=== PATIENT | female | born 1940 | race Caucasian/White ===

== ENCOUNTER 2018-01-30 10:44 | Inpatient (IN) | payer OTHER ==
[~2018-01-30] VITALS: Ht 152.4 cm; Wt 71.7 kg
[2018-01-30 11:51] LABS: MICROSCOPIC INDICATED
[2018-01-30 11:52] LABS: CULTURE INDICATED? YES
[2018-01-30 12:00] LABS: MEAN CORPUSCULAR HEMOGLOBIN 30.6 pg (27.0-34.8); MEAN CORPUSCULAR HGB CONC 34.5 g/dL (32.4-35.8); MEAN CORPUSCULAR VOLUME 88.6 fL (80-100); MEAN PLATELET VOLUME 8.9 fL (7.4-10.4); PLATELET COUNT 277 x10^3/uL (130-400); RED BLOOD COUNT 4.51 x10^6/uL (3.82-5.3); RED CELL DISTRIBUTION WIDTH 17.6 % (9.6-15.2)
[2018-01-30 12:15] LABS: ANION GAP 9 mmol/L (5-15); CALCIUM 8.4 mg/dL (8.5-10.1); CHLORIDE 107 mmol/L (98-107)
[2018-01-30 12:17] LABS: ALANINE AMINOTRANSFERASE 537 U/L (12-78); ALKALINE PHOSPHATASE 193 U/L (45-117); BILIRUBIN,TOTAL 4.6 mg/dL (0.2-1.0); CREATININE 0.75 mg/dL (0.55-1.02); TOTAL PROTEIN 7.9 g/dL (6.4-8.2)
[2018-01-30 12:22] LABS: TROPONIN I < 0.015 ng/mL (0.000-0.045)
[2018-01-30 12:31] LABS: MD YES
[2018-01-30 12:33] LABS: ANISOCYTOSIS 1+; BAND#(MANUAL) 0.24 x10^3/uL; BANDS%(MANUAL) 3 % (0-7); LYMPH#(MANUAL) 2.05 x10^3/uL (1-3.4); LYMPHS% (MANUAL) 26 % (22-44); MONOS#(MANUAL) 0.47 x10^3/uL (0.3-2.7); MONOS% (MANUAL) 6 % (2-9); SEG#(MANUAL) 5.14 x10^3/uL (1.8-6.8); SEGS% (MANUAL) 65 % (42-75)
[2018-01-30 12:34] LABS: <PLATELET ESTIMATE> ADEQUATE; <PLT MORPHOLOGY> NORMAL PLT MORPH
[2018-01-30 12:36] LABS: TARGET CELLS 1+
[2018-01-30] MEDS ORDERED: CEFTRIAXONE PMX 1GM/50ML 50 ML ONE (14:29)
[2018-01-30] MEDS ORDERED: ONDANSETRON ODT 4 MG ONE (14:29)
[2018-01-30] MEDS ORDERED: MORPHINE SULFATE 4 MG/ML, 1ML ONE (14:30)
[2018-01-30] MEDS ORDERED: MORPHINE SULFATE 4 MG/ML, 1ML IVPush ONE (14:30)
[2018-01-30] MEDS ORDERED: CEFTRIAXONE 1,000 MG in SODIUM CHLORIDE 0.9% 50 ML IV ONE (14:30)
[2018-01-30] MEDS ORDERED: ONDANSETRON ODT 4 MG PO ONE (14:30)
[2018-01-30] MEDS ORDERED: ENALAPRILAT 1.25 MG/ML, 2ML IVPush PRN (15:00)
[2018-01-30] MEDS: LACTATED RINGERS 1,000 ML IV SCH ×2 (15:00→21:16)
[2018-01-30] MEDS ORDERED: POLYETHYLENE GLYCOL 17 GM PACKET PO PRN (15:00)
[2018-01-30] MEDS ORDERED: TRAZODONE 50MG TABLET PO PRN (15:00)
[2018-01-30 15:35] LABS: INTERNATIONAL NORMALIZED RATIO 1.09 (0.93-1.1); PROTHROMBIN TIME 11.3 Seconds (9.6-11.5)
[2018-01-30] MEDS: ONDANSETRON ODT 4 MG PO PRN (18:09)
[2018-01-30] MEDS ORDERED: FENTANYL PF 100 MCG/2ML ONE (18:43)
[2018-01-30] MEDS ORDERED: MIDAZOLAM 1 MG/ML, 2ML ONE (18:43)
[2018-01-30] MEDS ORDERED: CEFAZOLIN 1,000 MG ONE (19:23)
[2018-01-30] MEDS ORDERED: PHENYLEPHRINE 10 MG/ML ONE (19:23)
[2018-01-30] MEDS ORDERED: GLYCOPYRROLATE 0.2MG/1ML, 5ML ONE (19:23)
[2018-01-30] MEDS ORDERED: ROCURONIUM 10 MG/ML,10ML ONE (19:23)
[2018-01-30] MEDS ORDERED: PROPOFOL 10 MG/ML, 20ML ONE (19:23)
[2018-01-30] MEDS ORDERED: SUCCINYLCHOLINE 20 MG/ML, 10ML ONE (19:23)
[2018-01-30] MEDS ORDERED: ONDANSETRON 2MG/ML, 2ML ONE (19:23)
[2018-01-30] MEDS ORDERED: BUPIVACAINE/PF-EPI 0.5% 1:200K INFIL ONE (19:44)
[2018-01-30] MEDS ORDERED: MEPERIDINE/PF 25MG/0.5ML IVPush PRN (20:00)
[2018-01-30] MEDS ORDERED: ALBUTEROL SULFATE 2.5 MG/3 ML NPPB PRN (20:00)
[2018-01-30] MEDS ORDERED: PROMETHAZINE 25 MG/ML, 1ML IV PRN (20:00)
[2018-01-30] MEDS ORDERED: HYDROmorphone 1 MG/ML, 1ML IV PRN (20:00)
[2018-01-30] MEDS ORDERED: LABETALOL 5MG/ML, 20ML IV PRN (20:00)
[2018-01-30] MEDS ORDERED: hydrALAzine 20 MG/ML, 1ML IV PRN (20:00)
[2018-01-30] MEDS ORDERED: METOCLOPRAMIDE 5 MG/ML, 2ML IV PRN (20:00)
[2018-01-30] MEDS ORDERED: FENTANYL PF 100 MCG/2ML IV PRN (20:00)
[2018-01-30] MEDS ORDERED: OXYcodone 5 MG/5 ML ORAL.SOL UDC PO PRN (20:00)
[2018-01-30] MEDS ORDERED: KETOROLAC 30 MG/1 ML IV PRN (20:00)
[2018-01-30] MEDS ORDERED: ONDANSETRON 2MG/ML, 2ML IVPush PRN (20:00)
[2018-01-30] MEDS ORDERED: SUGAMMADEX 200 MG/2 ML IVPush ONE (20:20)
[2018-01-30] MEDS ORDERED: OXYcodone 5 MG/5 ML ORAL.SOL UDC ONE (20:41)
[2018-01-30 21:18] VITALS: BP 103/61
[2018-01-30] MEDS ORDERED: SODIUM CHLORIDE 0.9% 1,000 ML IVBOLUS PRN (23:09)
[2018-01-30] MEDS ORDERED: NALOXONE 1 MG/ML, 2ML ONE (23:35)
[2018-01-31 00:02] LABS: TROPONIN I < 0.015 ng/mL (0.000-0.045)
[2018-01-31] MEDS ORDERED: FENTANYL PF 250 MCG/5ML ONE (00:26)
[2018-01-31] MEDS ORDERED: SUCCINYLCHOLINE 20 MG/ML, 10ML ONE (00:35)
[2018-01-31] MEDS ORDERED: EPHEDRINE 50 MG/ML, 1ML ONE (00:35)
[2018-01-31] MEDS ORDERED: ROCURONIUM 10 MG/ML,10ML ONE (00:35)
[2018-01-31] MEDS ORDERED: CEFAZOLIN 1,000 MG ONE (00:35)
[2018-01-31] MEDS ORDERED: INSULIN SINGLE DOSE, ER SQ-INSULIN ONE (00:50)
[2018-01-31] MEDS ORDERED: HYDROmorphone 1 MG/ML, 1ML IV PRN (01:00)
[2018-01-31] MEDS ORDERED: PROMETHAZINE 25 MG/ML, 1ML IV PRN (01:00)
[2018-01-31] MEDS ORDERED: ALBUTEROL SULFATE 2.5 MG/3 ML NPPB PRN (01:00)
[2018-01-31] MEDS ORDERED: FENTANYL PF 100 MCG/2ML IV PRN (01:00)
[2018-01-31] MEDS ORDERED: OXYcodone 5 MG/5 ML ORAL.SOL UDC PO PRN (01:00)
[2018-01-31] MEDS ORDERED: LABETALOL 5MG/ML, 20ML IV PRN (01:00)
[2018-01-31] MEDS ORDERED: hydrALAzine 20 MG/ML, 1ML IV PRN (01:00)
[2018-01-31] MEDS ORDERED: SUGAMMADEX 200 MG/2 ML IVPush ONE (01:30)
[2018-01-31] MEDS ORDERED: PROPOFOL 100 ML IV ONE (02:01)
[2018-01-31] MEDS ORDERED: NOREPINEPHRINE 4 MG in SODIUM CHLORIDE 0.9% 246 ML IV PRN (03:30)
[2018-01-31 04:28] LABS: MEAN CORPUSCULAR HEMOGLOBIN 29.3 pg (27.0-34.8); MEAN CORPUSCULAR HGB CONC 32.9 g/dL (32.4-35.8); MEAN CORPUSCULAR VOLUME 88.9 fL (80-100); MEAN PLATELET VOLUME 8.9 fL (7.4-10.4); PLATELET COUNT 196 x10^3/uL (130-400); RED BLOOD COUNT 3.62 x10^6/uL (3.82-5.3); RED CELL DISTRIBUTION WIDTH 16.9 % (9.6-15.2)
[2018-01-31 04:42] LABS: MD YES
[2018-01-31 04:44] LABS: BAND#(MANUAL) 1.25 x10^3/uL; BANDS%(MANUAL) 6 % (0-7); LYMPH#(MANUAL) 1.04 x10^3/uL (1-3.4); LYMPHS% (MANUAL) 5 % (22-44); MONOS#(MANUAL) 1.04 x10^3/uL (0.3-2.7); MONOS% (MANUAL) 5 % (2-9); SEG#(MANUAL) 17.47 x10^3/uL (1.8-6.8); SEGS% (MANUAL) 84 % (42-75)
[2018-01-31 04:45] LABS: ANISOCYTOSIS 1+
[2018-01-31 04:46] LABS: <PLATELET ESTIMATE> ADEQUATE; <PLT MORPHOLOGY> NORMAL PLT MORPH; ANION GAP 7 mmol/L (5-15); CALCIUM 6.7 mg/dL (8.5-10.1); CHLORIDE 115 mmol/L (98-107); TARGET CELLS 1+
[2018-01-31 04:52] LABS: CREATININE 0.55 mg/dL (0.55-1.02)
[2018-01-31 04:53] LABS: ALANINE AMINOTRANSFERASE 335 U/L (12-78); ALKALINE PHOSPHATASE 127 U/L (45-117); BILIRUBIN,TOTAL 5.1 mg/dL (0.2-1.0); TOTAL PROTEIN 5.4 g/dL (6.4-8.2)
[2018-01-31] MEDS: KETOROLAC 30 MG/1 ML IV PRN (09:00)
[2018-01-31] MEDS ORDERED: CEFTRIAXONE 1,000 MG in SODIUM CHLORIDE 0.9% 50 ML IV SCH ×2 (09:00→14:30)
[2018-01-31] MEDS ORDERED: LACTATED RINGERS 500 ML IVBOLUS ONE (10:00)
[2018-01-31] MEDS ORDERED: HYDROCORTISONE 100 MG INJ. IVPush SCH (11:30)
[2018-01-31 15:18] LABS: MEAN CORPUSCULAR HEMOGLOBIN 30.4 pg (27.0-34.8); MEAN CORPUSCULAR VOLUME 89.5 fL (80-100); MEAN PLATELET VOLUME 8.9 fL (7.4-10.4); PLATELET COUNT 218 x10^3/uL (130-400); RED BLOOD COUNT 3.53 x10^6/uL (3.82-5.3); RED CELL DISTRIBUTION WIDTH 17.4 % (9.6-15.2)
[2018-01-31 15:24] LABS: ALANINE AMINOTRANSFERASE 330 U/L (12-78); ANION GAP 7 mmol/L (5-15); CALCIUM 6.9 mg/dL (8.5-10.1); CHLORIDE 113 mmol/L (98-107); CREATININE 0.64 mg/dL (0.55-1.02)
[2018-01-31 15:26] LABS: ALKALINE PHOSPHATASE 119 U/L (45-117); BILIRUBIN,TOTAL 4.9 mg/dL (0.2-1.0); TOTAL PROTEIN 5.5 g/dL (6.4-8.2)
[2018-01-31 15:51] LABS: MD YES
[2018-01-31 15:54] LABS: ANISOCYTOSIS 1+; BAND#(MANUAL) 1.25 x10^3/uL; BANDS%(MANUAL) 8 % (0-7); LYMPH#(MANUAL) 2.03 x10^3/uL (1-3.4); LYMPHS% (MANUAL) 13 % (22-44); MONOS#(MANUAL) 0.62 x10^3/uL (0.3-2.7); MONOS% (MANUAL) 4 % (2-9); SEGS% (MANUAL) 75 % (42-75); TARGET CELLS 1+
[2018-01-31 15:55] LABS: <PLATELET ESTIMATE> ADEQUATE; <PLT MORPHOLOGY> NORMAL PLT MORPH; SPHEROCYTES 1+
[2018-01-31] MEDS: SENNA/DOCUSATE TABLET PO SCH (16:36)
[2018-01-31] MEDS: LACTATED RINGERS 1,000 ML IV SCH (17:50)
[2018-01-31] MEDS: HYDROCORTISONE 100 MG INJ. IVPush SCH (20:12)
[2018-02-01 04:00] VITALS: BP 102/40
[2018-02-01] MEDS: LACTATED RINGERS 1,000 ML IV SCH ×3 (04:34→20:03)
[2018-02-01] MEDS: HYDROCORTISONE 100 MG INJ. IVPush SCH ×3 (04:34→20:02)
[2018-02-01 04:59] LABS: BASOPHILS # (AUTO) 0.02 x10^3/uL (0-0.1); BASOPHILS % (AUTO) 0 % (0-1); EOSINOPHILS % (AUTO) 0 % (1-7); LYMPHOCYTES # (AUTO) 2.16 x10^3/uL (1-3.4); LYMPHOCYTES % (AUTO) 13 % (22-44); MD NO; MEAN CORPUSCULAR HEMOGLOBIN 30.4 pg (27.0-34.8); MEAN CORPUSCULAR VOLUME 89.5 fL (80-100); MEAN PLATELET VOLUME 8.9 fL (7.4-10.4); MONOCYTES # (AUTO) 0.91 x10^3/uL (0.2-0.8); MONOCYTES % (AUTO) 5 % (2-9); NEUTROPHILS # (AUTO) 13.86 x10^3/uL (1.8-6.8); NEUTROPHILS % (AUTO) 82 % (42-75); PLATELET COUNT 222 x10^3/uL (130-400); RED BLOOD COUNT 3.21 x10^6/uL (3.82-5.3); RED CELL DISTRIBUTION WIDTH 17.6 % (9.6-15.2)
[2018-02-01 05:06] LABS: ALANINE AMINOTRANSFERASE 273 U/L (12-78); ANION GAP 7 mmol/L (5-15); CALCIUM 6.9 mg/dL (8.5-10.1); CHLORIDE 112 mmol/L (98-107); CREATININE 0.51 mg/dL (0.55-1.02)
[2018-02-01 05:08] LABS: ALKALINE PHOSPHATASE 111 U/L (45-117); TOTAL PROTEIN 5.5 g/dL (6.4-8.2)
[2018-02-01] MEDS: KETOROLAC 30 MG/1 ML IV PRN (08:45)
[2018-02-01] MEDS: HYDROcodone/APAP 5/325 TABLET PO PRN ×2 (08:45→15:27)
[2018-02-01] MEDS: SENNA/DOCUSATE TABLET PO SCH (08:45)
[2018-02-01] MEDS ORDERED: VASOPRESSIN 100 UNIT in SODIUM CHLORIDE 0.9% 495 ML IV PRN (09:00)
[2018-02-01] MEDS: VASOPRESSIN 50 UNIT in SODIUM CHLORIDE 0.9% 247.5 ML IV PRN ×2 (09:33→14:11)
[2018-02-01] MEDS: morphine SULFATE 10 MG/ML, 1ML IVPush PRN ×3 (11:26→16:20)
[2018-02-01] MEDS: ONDANSETRON ODT 4 MG PO PRN (11:28)
[2018-02-01] MEDS: PIPERACILLIN/TAZO/PMX 3.375GM 50 ML IV SCH ×3 (11:39→23:08)
[2018-02-01] MEDS ORDERED: LACTATED RINGERS 1,000 ML IVBOLUS ONE (16:30)
[2018-02-02 04:00] VITALS: BP 107/61
[2018-02-02] MEDS: HYDROCORTISONE 100 MG INJ. IVPush SCH ×3 (04:47→20:28)
[2018-02-02] MEDS: PIPERACILLIN/TAZO/PMX 3.375GM 50 ML IV SCH ×4 (04:47→23:08)
[2018-02-02 05:12] LABS: MEAN CORPUSCULAR HEMOGLOBIN 31.1 pg (27.0-34.8); MEAN CORPUSCULAR HGB CONC 34.1 g/dL (32.4-35.8); MEAN CORPUSCULAR VOLUME 91.2 fL (80-100); MEAN PLATELET VOLUME 8.7 fL (7.4-10.4); PLATELET COUNT 191 x10^3/uL (130-400); RED BLOOD COUNT 2.85 x10^6/uL (3.82-5.3); RED CELL DISTRIBUTION WIDTH 17.5 % (9.6-15.2)
[2018-02-02 05:18] LABS: ALANINE AMINOTRANSFERASE 209 U/L (12-78); ALBUMIN 1.8 g/dL (3.4-5.0); ANION GAP 6 mmol/L (5-15); CALCIUM 6.9 mg/dL (8.5-10.1); CHLORIDE 110 mmol/L (98-107); CREATININE 0.54 mg/dL (0.55-1.02)
[2018-02-02 05:20] LABS: ALKALINE PHOSPHATASE 86 U/L (45-117); TOTAL PROTEIN 4.9 g/dL (6.4-8.2)
[2018-02-02 06:01] LABS: MD YES
[2018-02-02 06:03] LABS: LYMPHS% (MANUAL) 14 % (22-44); MONOS#(MANUAL) 0.56 x10^3/uL (0.3-2.7); MONOS% (MANUAL) 3 % (2-9); SEG#(MANUAL) 15.44 x10^3/uL (1.8-6.8); SEGS% (MANUAL) 83 % (42-75)
[2018-02-02 06:04] LABS: ANISOCYTOSIS 1+; HYPOCHROMIA 1+; TARGET CELLS 1+
[2018-02-02 06:05] LABS: <PLATELET ESTIMATE> ADEQUATE; <PLT MORPHOLOGY> NORMAL PLT MORPH; SMUDGE CELLS 1+
[2018-02-02 06:10] LABS: POLYCHROMASIA 1+
[2018-02-02] MEDS: LACTATED RINGERS 1,000 ML IV SCH ×2 (07:41→23:09)
[2018-02-02] MEDS: SENNA/DOCUSATE TABLET PO SCH (07:42)
[2018-02-02] MEDS ORDERED: LACTATED RINGERS 1,000 ML IVBOLUS ONE (08:00)
[2018-02-02] MEDS: ONDANSETRON ODT 4 MG PO PRN ×2 (15:35→23:54)
[2018-02-02 15:55] VITALS: BP 98/62
[2018-02-02 19:24] VITALS: BP 102/59
[2018-02-02] MEDS: morphine SULFATE 10 MG/ML, 1ML IVPush PRN (23:54)
[2018-02-03 02:13] VITALS: BP 102/64
[2018-02-03] MEDS: HYDROCORTISONE 100 MG INJ. IVPush SCH (05:01)
[2018-02-03] MEDS: PIPERACILLIN/TAZO/PMX 3.375GM 50 ML IV SCH ×4 (05:01→23:33)
[2018-02-03 07:29] VITALS: BP 109/68
[2018-02-03 07:48] LABS: MEAN CORPUSCULAR HEMOGLOBIN 30.8 pg (27.0-34.8); MEAN CORPUSCULAR VOLUME 90.7 fL (80-100); MEAN PLATELET VOLUME 8.5 fL (7.4-10.4); PLATELET COUNT 235 x10^3/uL (130-400); RED BLOOD COUNT 3.03 x10^6/uL (3.82-5.3)
[2018-02-03 07:55] LABS: ALBUMIN 1.9 g/dL (3.4-5.0); ANION GAP 4 mmol/L (5-15); CALCIUM 7.3 mg/dL (8.5-10.1); CHLORIDE 112 mmol/L (98-107)
[2018-02-03 07:57] LABS: MD YES
[2018-02-03 07:58] LABS: ALANINE AMINOTRANSFERASE 182 U/L (12-78); ALKALINE PHOSPHATASE 84 U/L (45-117); BILIRUBIN,TOTAL 1.8 mg/dL (0.2-1.0); CREATININE 0.53 mg/dL (0.55-1.02); TOTAL PROTEIN 5.2 g/dL (6.4-8.2)
[2018-02-03 08:14] LABS: LYMPHS% (MANUAL) 9 % (22-44); MONOS#(MANUAL) 0.67 x10^3/uL (0.3-2.7); MONOS% (MANUAL) 4 % (2-9); NRBC % (MANUAL) 1 % (0-1); SEG#(MANUAL) 14.53 x10^3/uL (1.8-6.8); SEGS% (MANUAL) 87 % (42-75)
[2018-02-03 08:16] LABS: <PLATELET ESTIMATE> ADEQUATE; <PLT MORPHOLOGY> NORMAL PLT MORPH; ANISOCYTOSIS 1+; HYPOCHROMIA 1+; POLYCHROMASIA 1+; TARGET CELLS 1+
[2018-02-03] MEDS: SENNA/DOCUSATE TABLET PO SCH (09:18)
[2018-02-03] MEDS: HYDROcodone/APAP 5/325 TABLET PO PRN ×2 (11:08→20:19)
[2018-02-03] MEDS: LACTATED RINGERS 1,000 ML IV SCH ×2 (11:08→23:34)
[2018-02-03] MEDS: ONDANSETRON ODT 4 MG PO PRN ×2 (13:06→20:15)
[2018-02-03 13:22] VITALS: BP 131/69
[2018-02-03 19:39] VITALS: BP 131/69
[2018-02-04 00:51] VITALS: BP 104/64
[2018-02-04] MEDS: PIPERACILLIN/TAZO/PMX 3.375GM 50 ML IV SCH ×4 (05:41→22:39)
[2018-02-04] MEDS: HYDROcodone/APAP 5/325 TABLET PO PRN ×3 (06:06→20:48)
[2018-02-04] MEDS: ONDANSETRON ODT 4 MG PO PRN ×4 (06:06→20:48)
[2018-02-04 07:04] VITALS: BP 99/55
[2018-02-04] MEDS: SENNA/DOCUSATE TABLET PO SCH (08:45)
[2018-02-04] MEDS: LACTATED RINGERS 1,000 ML IV SCH (11:59)
[2018-02-04 12:24] VITALS: BP 133/63
[2018-02-04 12:45] LABS: BASOPHILS # (AUTO) 0.03 x10^3/uL (0-0.1); BASOPHILS % (AUTO) 0 % (0-1); EOSINOPHILS # (AUTO) 0.03 x10^3/uL (0-0.4); EOSINOPHILS % (AUTO) 0 % (1-7); LYMPHOCYTES # (AUTO) 4.39 x10^3/uL (1-3.4); LYMPHOCYTES % (AUTO) 33 % (22-44); MD NO; MEAN CORPUSCULAR HGB CONC 34.7 g/dL (32.4-35.8); MEAN CORPUSCULAR VOLUME 92.2 fL (80-100); MEAN PLATELET VOLUME 8.4 fL (7.4-10.4); MONOCYTES # (AUTO) 1.35 x10^3/uL (0.2-0.8); MONOCYTES % (AUTO) 10 % (2-9); NEUTROPHILS # (AUTO) 7.66 x10^3/uL (1.8-6.8); NEUTROPHILS % (AUTO) 57 % (42-75); PLATELET COUNT 247 x10^3/uL (130-400); RED BLOOD COUNT 3.19 x10^6/uL (3.82-5.3); RED CELL DISTRIBUTION WIDTH 16.9 % (9.6-15.2)
[2018-02-04 20:34] VITALS: BP 113/45
[2018-02-05 03:24] VITALS: BP_SYST 104; BP_SYST 124; BP_DIAS 63; BP_DIAS 66
[2018-02-05] MEDS: ONDANSETRON ODT 4 MG PO PRN ×4 (03:29→18:40)
[2018-02-05 03:31] LABS: BASOPHILS # (AUTO) 0.04 x10^3/uL (0-0.1); BASOPHILS % (AUTO) 0 % (0-1); EOSINOPHILS # (AUTO) 0.12 x10^3/uL (0-0.4); EOSINOPHILS % (AUTO) 1 % (1-7); LYMPHOCYTES # (AUTO) 3.96 x10^3/uL (1-3.4); LYMPHOCYTES % (AUTO) 36 % (22-44); MD NO; MEAN CORPUSCULAR HEMOGLOBIN 31.6 pg (27.0-34.8); MEAN CORPUSCULAR HGB CONC 34.3 g/dL (32.4-35.8); MEAN CORPUSCULAR VOLUME 92.1 fL (80-100); MEAN PLATELET VOLUME 8.1 fL (7.4-10.4); MONOCYTES # (AUTO) 1.28 x10^3/uL (0.2-0.8); MONOCYTES % (AUTO) 12 % (2-9); NEUTROPHILS # (AUTO) 5.57 x10^3/uL (1.8-6.8); NEUTROPHILS % (AUTO) 51 % (42-75); PLATELET COUNT 259 x10^3/uL (130-400); RED BLOOD COUNT 3.19 x10^6/uL (3.82-5.3); RED CELL DISTRIBUTION WIDTH 16.5 % (9.6-15.2)
[2018-02-05 03:44] LABS: ALANINE AMINOTRANSFERASE 156 U/L (12-78); ALBUMIN 1.8 g/dL (3.4-5.0)
[2018-02-05 03:46] LABS: ALKALINE PHOSPHATASE 74 U/L (45-117); BILIRUBIN,TOTAL 1.5 mg/dL (0.2-1.0); CREATININE 0.61 mg/dL (0.55-1.02); TOTAL PROTEIN 4.9 g/dL (6.4-8.2)
[2018-02-05 04:01] LABS: ANION GAP 6 mmol/L (5-15); CHLORIDE 111 mmol/L (98-107)
[2018-02-05] MEDS: PIPERACILLIN/TAZO/PMX 3.375GM 50 ML IV SCH (05:30)
[2018-02-05 07:37] VITALS: BP 106/67
[2018-02-05] MEDS: POTASSIUM CHLORIDE 20 MEQ TAB.ER.PRT PO SCH ×2 (08:28→17:08)
[2018-02-05] MEDS: SENNA/DOCUSATE TABLET PO SCH (08:29)
[2018-02-05 14:00] VITALS: BP 102/63
[2018-02-05] MEDS ORDERED: OMNIPAQUE 350 MG/ML, 75ML BOTTLE ONE (15:16)
[2018-02-05 19:51] VITALS: BP 113/64
[2018-02-05] MEDS: AMOXICILLIN/CLAV 875-125MG TABLET PO SCH (21:43)
[2018-02-06 02:37] VITALS: BP 105/66
[2018-02-06] MEDS: ONDANSETRON ODT 4 MG PO PRN ×3 (04:08→19:52)
[2018-02-06 04:23] LABS: BASOPHILS # (AUTO) 0.05 x10^3/uL (0-0.1); BASOPHILS % (AUTO) 1 % (0-1); EOSINOPHILS # (AUTO) 0.07 x10^3/uL (0-0.4); EOSINOPHILS % (AUTO) 1 % (1-7); LYMPHOCYTES # (AUTO) 2.99 x10^3/uL (1-3.4); LYMPHOCYTES % (AUTO) 29 % (22-44); MD NO; MEAN CORPUSCULAR HEMOGLOBIN 31.2 pg (27.0-34.8); MEAN CORPUSCULAR HGB CONC 34.1 g/dL (32.4-35.8); MEAN CORPUSCULAR VOLUME 91.5 fL (80-100); MEAN PLATELET VOLUME 8.3 fL (7.4-10.4); MONOCYTES # (AUTO) 0.58 x10^3/uL (0.2-0.8); MONOCYTES % (AUTO) 6 % (2-9); NEUTROPHILS # (AUTO) 6.74 x10^3/uL (1.8-6.8); NEUTROPHILS % (AUTO) 65 % (42-75); PLATELET COUNT 288 x10^3/uL (130-400); RED BLOOD COUNT 3.31 x10^6/uL (3.82-5.3); RED CELL DISTRIBUTION WIDTH 16.9 % (9.6-15.2)
[2018-02-06 04:31] LABS: CALCIUM 7.4 mg/dL (8.5-10.1); CREATININE 0.53 mg/dL (0.55-1.02)
[2018-02-06 04:41] LABS: ANION GAP 2 mmol/L (5-15); CHLORIDE 108 mmol/L (98-107)
[2018-02-06 06:30] VITALS: BP 121/70
[2018-02-06] MEDS: POTASSIUM CHLORIDE 20 MEQ TAB.ER.PRT PO SCH ×2 (08:54→17:09)
[2018-02-06] MEDS: AMOXICILLIN/CLAV 875-125MG TABLET PO SCH ×2 (08:54→21:06)
[2018-02-06] MEDS: SENNA/DOCUSATE TABLET PO SCH (08:57)
[2018-02-06 12:15] VITALS: BP 112/49
[2018-02-06 19:36] VITALS: BP 121/73
[2018-02-07 02:23] VITALS: BP 135/68
[2018-02-07 05:34] LABS: BASOPHILS # (AUTO) 0.05 x10^3/uL (0-0.1); BASOPHILS % (AUTO) 0 % (0-1); EOSINOPHILS # (AUTO) 0.21 x10^3/uL (0-0.4); EOSINOPHILS % (AUTO) 2 % (1-7); LYMPHOCYTES # (AUTO) 3.22 x10^3/uL (1-3.4); LYMPHOCYTES % (AUTO) 28 % (22-44); MD NO; MEAN CORPUSCULAR HEMOGLOBIN 32.4 pg (27.0-34.8); MEAN CORPUSCULAR HGB CONC 34.7 g/dL (32.4-35.8); MEAN CORPUSCULAR VOLUME 93.4 fL (80-100); MEAN PLATELET VOLUME 8.2 fL (7.4-10.4); MONOCYTES # (AUTO) 1.25 x10^3/uL (0.2-0.8); MONOCYTES % (AUTO) 11 % (2-9); NEUTROPHILS % (AUTO) 58 % (42-75); PLATELET COUNT 249 x10^3/uL (130-400); RED BLOOD COUNT 2.93 x10^6/uL (3.82-5.3); RED CELL DISTRIBUTION WIDTH 17.4 % (9.6-15.2)
[2018-02-07 05:45] LABS: ALANINE AMINOTRANSFERASE 116 U/L (12-78); ALBUMIN 1.7 g/dL (3.4-5.0); ANION GAP 0 mmol/L (5-15); CALCIUM 7.1 mg/dL (8.5-10.1); CHLORIDE 110 mmol/L (98-107)
[2018-02-07 05:47] LABS: ALKALINE PHOSPHATASE 81 U/L (45-117); BILIRUBIN,TOTAL 1.9 mg/dL (0.2-1.0); CREATININE 0.48 mg/dL (0.55-1.02); TOTAL PROTEIN 4.8 g/dL (6.4-8.2)
[2018-02-07 07:49] VITALS: BP 106/61
[2018-02-07] MEDS: AMOXICILLIN/CLAV 875-125MG TABLET PO SCH (08:23)
[2018-02-07] MEDS: POTASSIUM CHLORIDE 20 MEQ TAB.ER.PRT PO SCH ×2 (08:23→17:00)
[2018-02-07] MEDS: ONDANSETRON ODT 4 MG PO PRN ×2 (08:23→16:01)
[2018-02-07] MEDS: SENNA/DOCUSATE TABLET PO SCH (08:24)
[2018-02-07] MEDS ORDERED: AMOX1TAB12 PO (12:02)
[2018-02-07 14:03] VITALS: BP 91/56
== END 2018-02-07 19:03 | disposition home health service (06) | DRG 417 ==
LOC: ED 14:04 → EDIP 14:38 → 3NE 16:25 → CCU 01-31 01:50 → 4NOR 02-02 15:01 → CCU 02-02 15:05 → 4NOR 02-02 15:52
PROVIDERS: ADMIT Family Medicine; ATTEND Family Medicine
PROC: BF131ZZ Fluoroscopy of Gallbladder and Bile Ducts using Low Osmolar Contrast (ICD-10-PCS; 2018-01-30)
PROC: 0FT44ZZ Resection of Gallbladder, Percutaneous Endoscopic Approach (ICD-10-PCS; principal; 2018-01-30 21:30)
PROC: 30233N1 Transfusion of Nonautologous Red Blood Cells into Peripheral Vein, Percutaneous Approach (ICD-10-PCS; 2018-01-31)
PROC: 02HV33Z Insertion of Infusion Device into Superior Vena Cava, Percutaneous Approach (ICD-10-PCS; 2018-01-31)
PROC: B548ZZA Ultrasonography of Superior Vena Cava, Guidance (ICD-10-PCS; 2018-01-31)
PROC: 3E1M38Z Irrigation of Peritoneal Cavity using Irrigating Substance, Percutaneous Approach (ICD-10-PCS; 2018-01-31)
PROC: 5A1935Z Respiratory Ventilation, Less than 24 Consecutive Hours (ICD-10-PCS; 2018-01-31)
PROC: 0BH17EZ Insertion of Endotracheal Airway into Trachea, Via Natural or Artificial Opening (ICD-10-PCS; 2018-01-31)
DX: K80.62 Calculus of gallbladder and bile duct with acute cholecystitis without obstruction (principal); R65.11 Systemic inflammatory response syndrome (SIRS) of non-infectious origin with acute organ dysfunction; K66.1 Hemoperitoneum; C23 Malignant neoplasm of gallbladder; N39.0 Urinary tract infection, site not specified; E46 Unspecified protein-calorie malnutrition; J90 Pleural effusion, not elsewhere classified; J98.11 Atelectasis; D18.03 Hemangioma of intra-abdominal structures; F17.210 Nicotine dependence, cigarettes, uncomplicated; K59.09 Other constipation; Z88.6 Allergy status to analgesic agent; Z68.30 Body mass index [BMI] 30.0-30.9, adult; D50.0 Iron deficiency anemia secondary to blood loss (chronic); E04.2 Nontoxic multinodular goiter; E86.0 Dehydration; E87.6 Hypokalemia; I95.81 Postprocedural hypotension; M81.0 Age-related osteoporosis without current pathological fracture; N28.1 Cyst of kidney, acquired; S30.1XXA Contusion of abdominal wall, initial encounter; X58.XXXA Exposure to other specified factors, initial encounter; Y93.89 Activity, other specified; Y92.89 Other specified places as the place of occurrence of the external cause; Y99.8 Other external cause status
CPT/HCPCS: 36415; 36569; 36600; 71045; 71260; 74181; 76700; 76705; 76937; 77001; 80048; 80053; 80307; 81001; 82330; 82533; 82803; 82947; 83690; 84132; 84295; 84484; 85014; 85018; 85025; 85610; 85730; 86850; 86900; 86923; 87070; 87077; 87081; 87086; 87186; 87205; 88304; 88307; 93005; 94002; 94003; 96365; 96375; 99285; G0378; J0690; J0696; J1885; J2250; J2405; J2543; J2704; J3010; J3490; Q0162; Q9967; C1751; J0330; J1720; J2270; J2370; J7050; J7120; P9016

== ENCOUNTER 2018-02-28 09:52 | Day surgery (SDC) | payer OTHER ==
[~2018-02-28] VITALS: Ht 152.4 cm; Wt 52.8 kg
[~2018-02-28 09:52] MED LIST: AMOX1TAB12 PO
[2018-02-28] MEDS ORDERED: ZOLP-413 PO (10:26)
[2018-02-28 10:31] VITALS: BP 159/78
[2018-02-28] MEDS ORDERED: LACTATED RINGERS 1,000 ML IV SCH (11:00)
[2018-02-28] MEDS ORDERED: BUPIVACAINE/PF-EPI 0.5% 1:200K ONE (11:02)
[2018-02-28] MEDS ORDERED: HEPARIN 1,000 UNITS/ML, 10ML ONE (11:03)
[2018-02-28] MEDS ORDERED: LIDOCAINE-MPF 2% ,5ML ONE (11:36)
[2018-02-28] MEDS ORDERED: CEFAZOLIN 1,000 MG ONE (11:51)
[2018-02-28] MEDS ORDERED: DEXAMETHASONE 4 MG/ML, 1ML ONE (11:51)
[2018-02-28] MEDS ORDERED: PROPOFOL 10 MG/ML, 20ML ONE (11:51)
[2018-02-28] MEDS ORDERED: ONDANSETRON 2MG/ML, 2ML ONE (11:51)
[2018-02-28] MEDS ORDERED: FENTANYL PF 100 MCG/2ML ONE ×2 (11:58→13:07)
[2018-02-28] MEDS ORDERED: MIDAZOLAM 1 MG/ML, 2ML ONE (12:01)
[2018-02-28] MEDS ORDERED: OXYcodone 5 MG/5 ML ORAL.SOL UDC ONE (12:56)
[2018-02-28] MEDS ORDERED: ACETAMINOPHEN 650 MG/20.3 ML UDC ONE (12:58)
[2018-02-28] MEDS: OXYcodone 5 MG/5 ML ORAL.SOL UDC PO PRN ×2 (12:58→15:20)
[2018-02-28] MEDS ORDERED: FENTANYL PF 100 MCG/2ML IV PRN (13:00)
[2018-02-28] MEDS ORDERED: MEPERIDINE/PF 25MG/0.5ML IVPush PRN (13:00)
[2018-02-28] MEDS ORDERED: HALOPERIDOL 5 MG/ML IV PRN (13:00)
[2018-02-28] MEDS ORDERED: hydrALAzine 20 MG/ML, 1ML IV PRN (13:00)
[2018-02-28] MEDS ORDERED: PROMETHAZINE 25 MG/ML, 1ML IV PRN (13:00)
[2018-02-28] MEDS ORDERED: ACETAMINOPHEN 325 MG TABLET PO PRN (13:00)
[2018-02-28] MEDS ORDERED: LABETALOL 5MG/ML, 20ML IV PRN (13:00)
[2018-02-28] MEDS ORDERED: HYDROmorphone 2 MG/ML, 1ML IV PRN (13:00)
== END 2018-02-28 16:10 | disposition home or self-care (01) ==
LOC: OUT 09:52
PROVIDERS: ATTEND Surgery
DX: Z45.2 Encounter for adjustment and management of vascular access device (principal); C23 Malignant neoplasm of gallbladder; Z90.49 Acquired absence of other specified parts of digestive tract; Z88.1 Allergy status to other antibiotic agents; Z88.5 Allergy status to narcotic agent; Z88.8 Allergy status to other drugs, medicaments and biological substances; Z87.891 Personal history of nicotine dependence; Z98.890 Other specified postprocedural states
CPT/HCPCS: 36561; 77001; C1788; J0690; J1100; J1644; J2250; J2405; J2704; J3010; J3490

== ENCOUNTER → 2018-03-05 | Outpatient (CLI) | payer OTHER ==
[~2018-03-05] MED LIST changes: +ZOLP-413 PO
== END | disposition home or self-care (01) ==
LOC: PETCFH 13:47
PROVIDERS: ATTEND Surgery
DX: C23 Malignant neoplasm of gallbladder (principal)
CPT/HCPCS: 78815; A9552

== ENCOUNTER 2018-05-17 08:28 | Emergency (ER) | payer OTHER ==
[~2018-05-17] VITALS: Ht 152.4 cm; Wt 52.8 kg
[2018-05-17 08:32] VITALS: BP 125/77
[2018-05-17] MEDS ORDERED: METHOCARBAMOL 750 MG TABLET ONE (09:18)
[2018-05-17] MEDS ORDERED: KETOROLAC 30 MG/1 ML ONE (09:18)
[2018-05-17] MEDS ORDERED: METHOCARBAMOL 750 MG TABLET PO ONE (09:30)
[2018-05-17] MEDS ORDERED: KETOROLAC 30 MG/1 ML IM/IV ONE (09:30)
== END 2018-05-17 10:26 | disposition home or self-care (01) ==
LOC: ED 10:00
DX: M26.621 Arthralgia of right temporomandibular joint (principal)
CPT/HCPCS: 96372; 99283; J1885

== ENCOUNTER 2018-07-05 09:57 | Emergency (ER) | payer MEDICARE, OTHER ==
[~2018-07-05] VITALS: Ht 152.4 cm; Wt 52.0 kg
[2018-07-05 10:40] VITALS: BP 151/54
[2018-07-05] MEDS ORDERED: KETOROLAC 30 MG/1 ML IM ONE (11:00)
[2018-07-05] MEDS ORDERED: KETOROLAC 30 MG/1 ML ONE (11:12)
== END 2018-07-05 11:23 ==
LOC: ED 11:15
DX: M26.601 Right temporomandibular joint disorder, unspecified (principal)
CPT/HCPCS: 96372; 99283; J1885

== ENCOUNTER → 2018-09-16 | Outpatient (CLI) | payer MEDICARE ==
[~2018-09-16] MED LIST changes: +OMNIPAQUE 350 MG/ML, 100ML BOTTLE ONE
== END | disposition home or self-care (01) ==
LOC: RAD 14:32
PROVIDERS: ATTEND Specialist
DX: N28.1 Cyst of kidney, acquired (principal); Z85.09 Personal history of malignant neoplasm of other digestive organs; Z90.49 Acquired absence of other specified parts of digestive tract
CPT/HCPCS: 71260; 74177; Q9967

== ENCOUNTER 2018-10-31 22:36 | Emergency (ER) | payer MEDICARE ==
[~2018-10-31] VITALS: Ht 152.4 cm; Wt 47.6 kg
[~2018-10-31 22:36] MED LIST changes: -OMNIPAQUE 350 MG/ML, 100ML BOTTLE ONE
--- NOTE | 2018-10-31 23:00 | NUR ---
Dr. Silva at bedside to evaluate pt. Pt with pain and limited movement of right shoulder/upper arm. Pt with lac to right posterior head, bleeding controlled. Pt denies LOC, cervical neck pain, or being on any blood thinners.
[2018-10-31] MEDS ORDERED: HYDROcodone/APAP 5/325 TABLET ONE (23:09)
[2018-10-31] MEDS ORDERED: HYDROcodone/APAP 5/325 TABLET PO ONE (23:30)
--- NOTE | 2018-11-01 00:35 | NUR ---
Pt back to room from imaging.
--- NOTE | 2018-11-01 00:40 | NUR ---
Pt resting on gurney, pt's daughter remains at bedside.
--- NOTE | 2018-11-01 01:35 | NUR ---
Dr. Silva at bedside to discuss ED findings and POC.
[2018-11-01] MEDS ORDERED: HYDROcodone/APAP 5/325 TABLET ONE (01:50)
[2018-11-01 01:57] VITALS: BP 115/42
--- NOTE | 2018-11-01 01:58 | NUR ---
Patient/Caregiver given discharge instructions and they have confirmed that they understand the instructions. Patient ambulatory with steady gait.
[2018-11-01] MEDS ORDERED: HYDROcodone/APAP 5/325 TABLET PO ONE (02:00)
== END 2018-11-01 01:59 | disposition home or self-care (01) ==
LOC: ED 23:12
DX: S42.291A Other displaced fracture of upper end of right humerus, initial encounter for closed fracture (principal); S00.01XA Abrasion of scalp, initial encounter; Z90.49 Acquired absence of other specified parts of digestive tract; F17.200 Nicotine dependence, unspecified, uncomplicated; W18.00XA Striking against unspecified object with subsequent fall, initial encounter; Y93.89 Activity, other specified; Y92.009 Unspecified place in unspecified non-institutional (private) residence as the place of occurrence of the external cause; Y99.8 Other external cause status
CPT/HCPCS: 70450; 72125; 99284

== ENCOUNTER → 2018-11-25 | Outpatient (CLI) | payer MEDICARE | END | disposition home or self-care (01) | LOC: PETCFH 09:52 | PROVIDERS: ATTEND Surgery | DX: C23 Malignant neoplasm of gallbladder (principal); S42.301D Unspecified fracture of shaft of humerus, right arm, subsequent encounter for fracture with routine healing; X58.XXXD Exposure to other specified factors, subsequent encounter | CPT/HCPCS: 78815; A9552 ==

== ENCOUNTER 2018-12-18 13:29 | Outpatient (CLI) | payer MEDICARE | END 2018-12-18 23:59 | disposition home or self-care (01) | LOC: CFH 13:29 | PROVIDERS: ATTEND Surgery | DX: C23 Malignant neoplasm of gallbladder (principal); R19.01 Right upper quadrant abdominal swelling, mass and lump | CPT/HCPCS: 74178; 82565; Q9967 ==

== ENCOUNTER 2019-01-09 06:00 | Day surgery (SDC) | payer MEDICARE ==
[~2019-01-09] VITALS: Ht 152.4 cm; Wt 45.1 kg
[2019-01-09 06:52] VITALS: BP 138/68
== END 2019-01-09 10:20 | disposition home or self-care (01) ==
LOC: OUT 06:00
PROVIDERS: ATTEND Specialist
DX: C79.89 Secondary malignant neoplasm of other specified sites (principal); C23 Malignant neoplasm of gallbladder; Z79.899 Other long term (current) drug therapy; Z87.891 Personal history of nicotine dependence; Z88.8 Allergy status to other drugs, medicaments and biological substances; Z90.49 Acquired absence of other specified parts of digestive tract; Z92.21 Personal history of antineoplastic chemotherapy; Z98.890 Other specified postprocedural states
CPT/HCPCS: 49180; 77012; 88305; 99156; 99157; J2250; J3010; J7030; J2310

== ENCOUNTER 2019-05-16 09:45 | Inpatient (IN) | payer MEDICARE ==
[~2019-05-16] VITALS: Ht 152.4 cm; Wt 47.6 kg
[~2019-05-16 09:45] MED LIST changes: +HYDR-3240 PO
[2019-05-16] MEDS ORDERED: SODIUM CHLORIDE 0.9% 1,000ML IVBOLUS ONE ×2 (10:30→11:30)
[2019-05-16] MEDS ORDERED: ACETAMINOPHEN 325 MG TABLET PO ONE (10:30)
[2019-05-16] MEDS ORDERED: SODIUM CHLORIDE FLUSH 10ML SYR IVF ONE (10:30)
[2019-05-16] MEDS ORDERED: morphine er PEG (10:50)
--- NOTE | 2019-05-16 10:53 | NUR ---
pt to ed after family noticed that pt was more confused. 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 romario january 2018 with complications. pt currently takes morphing er 15mg bid and norco occasionally. unknown what medications pt took today. pt presented hypotensive and confused, often hallucinating. Dr. Bautista to bs. piv established and 1L ns adminstered. labs and bc x2 completed. xr completed. humeral fx noted on xr and Dr. Bautista notified. registration in room at this time. awaiting resutls.
[2019-05-16] MEDS ORDERED: marinol (11:00)
[2019-05-16] MEDS ORDERED: cough suppressant (11:00)
[2019-05-16] MEDS ORDERED: zofran (11:01)
[2019-05-16] MEDS ORDERED: compazine (11:01)
[2019-05-16 11:13] LABS: MEAN CORPUSCULAR HEMOGLOBIN 34.4 pg (27.0-34.8); MEAN CORPUSCULAR HGB CONC 32.6 g/dL (32.4-35.8); MEAN CORPUSCULAR VOLUME 105.4 fL (80-100); MEAN PLATELET VOLUME 8.1 fL (7.4-10.4); PLATELET COUNT 159 x10^3/uL (130-400); RED BLOOD COUNT 3.61 x10^6/uL (3.82-5.3); RED CELL DISTRIBUTION WIDTH 14.8 % (9.6-15.2)
[2019-05-16 11:27] LABS: ALANINE AMINOTRANSFERASE 14 U/L (12-78); ALBUMIN 2.8 g/dL (3.4-5.0); ANION GAP 6 mmol/L (5-15); CALCIUM 9.1 mg/dL (8.5-10.1); CHLORIDE 102 mmol/L (98-107); CREATININE 0.93 mg/dL (0.55-1.02); MD YES
[2019-05-16 11:28] LABS: BAND#(MANUAL) 2.81 x10^3/uL; BANDS%(MANUAL) 13 % (0-7); EOS#(MANUAL) 0.22 x10^3/uL (0.0-0.4); EOS% (MANUAL) 1 % (1-7); LYMPH#(MANUAL) 1.08 x10^3/uL (1-3.4); LYMPHS% (MANUAL) 5 % (22-44); MONOS#(MANUAL) 0.86 x10^3/uL (0.3-2.7); MONOS% (MANUAL) 4 % (2-9); SEG#(MANUAL) 16.63 x10^3/uL (1.8-6.8); SEGS% (MANUAL) 77 % (42-75)
[2019-05-16 11:29] LABS: <PLATELET ESTIMATE> ADEQUATE; <PLT MORPHOLOGY> NORMAL PLT MORPH; ALKALINE PHOSPHATASE 75 U/L (45-117); BILIRUBIN,TOTAL 0.8 mg/dL (0.2-1.0); TOTAL PROTEIN 8.1 g/dL (6.4-8.2)
[2019-05-16] MEDS ORDERED: AZITHROMYCIN 500 MG in SODIUM CHLORIDE 0.9% 250 ML IVPB ONE (11:30)
[2019-05-16] MEDS ORDERED: CEFTRIAXONE PMX 1GM/50ML 50 ML IVPB ONE (11:30)
[2019-05-16 11:34] LABS: MICROSCOPIC NOT IND
[2019-05-16 11:35] LABS: CULTURE INDICATED? NO
[2019-05-16] MEDS ORDERED: CEFTRIAXONE PMX 1GM/50ML 50 ML ONE (11:39)
--- NOTE | 2019-05-16 11:49 | NUR ---
pt resting in room. vss. no needs expressed. ivabx started after bc x2 collected. per family, pt has been choking while drinking water recently. po medications held d/t aspiration risk. pt altered and attempting to bite equipment. ivf bolus completed. awaiting admit orders.
[2019-05-16] MEDS ORDERED: SODIUM CHLORIDE 0.9% 1,000 ML IV ONE (12:13)
[2019-05-16] MEDS ORDERED: SODIUM CHLORIDE FLUSH 10ML SYR IVF PRN (12:30)
--- NOTE | 2019-05-16 12:36 | NUR ---
unr x2 to bs for assessment. pt resting in room. vss. provided bedpan but unable to urinate. no needs expressed. awaiting room assignment.
[2019-05-16] MEDS: NOREPINEPHRINE 4 MG in SODIUM CHLORIDE 0.9% 246 ML IV PRN ×5 (13:41→19:22)
--- NOTE | 2019-05-16 13:46 | NUR ---
pt resting in room with family at bs. vss after norepinephrine started. existing port accessed with sterile technique. ivf infusing. pt now moving to trauma room. report to trauma rn.
[2019-05-16] MEDS ORDERED: ENALAPRILAT 1.25 MG/ML, 2ML IVPush PRN (14:00)
[2019-05-16] MEDS ORDERED: BISACODYL 10 MG SUPP PR PRN (14:00)
[2019-05-16] MEDS ORDERED: ONDANSETRON ODT 4 MG PO PRN (14:00)
[2019-05-16] MEDS ORDERED: ACETAMINOPHEN 325 MG TABLET PO PRN (14:00)
[2019-05-16] MEDS ORDERED: ONDANSETRON 2MG/ML, 2ML IVPush PRN (14:00)
[2019-05-16] MEDS ORDERED: POLYETHYLENE GLYCOL 17 GM PACKET PO PRN (14:00)
[2019-05-16] MEDS ORDERED: PROMETHAZINE 25 MG/ML, 1ML IM PRN (14:00)
[2019-05-16] MEDS ORDERED: LABETALOL 5MG/ML, 20ML IVPush PRN (14:00)
--- NOTE | 2019-05-16 14:07 | NUR ---
SBAR RPT REC'D FROM HEATHER MONTOYA AND PT CARE ASSUMED. PT MOVED TO TRAUMA ROOM 3 AND TRANSFERED TO WEIGHTED ANTONIORMAIRA, WT 50.8KG. PT TOLLERATED ACTIVITY WELL AND IS CONVERSING APPROPRIATELY WITH FAMILY. LEVOPHE=D GTT 4MG/250ML INFUSING THROUGH RIGHT CHEST INFUSION PORT AT 5MCG/MIN. VS NOTED. ORDERS REVIEWED.
--- NOTE | 2019-05-16 14:10 | NUR ---
PT WITH RIGHT HUMERUS FX ON XRAY, DENIES ANY PAIN IN RIGHT ARM AND SEEMS TO HAVE GOOD DISTAL CMS AND ROM. RIGHT ARM SUPPORTED ON PILLOW
[2019-05-16] MEDS: SODIUM CHLORIDE 0.9% 1,000 ML IV SCH ×2 (14:15→21:48)
--- NOTE | 2019-05-16 14:50 | NUR ---
DR ASIF UNR UPDATED ON PT ASSESSMENT. LEVOPHED INFUSING AT 6MG/MIN. PT CONT WITH LOW DIASTOLIC PRESSURE. NEW ORDER FOR ECHO REC'D. GOAL TO TITRATE LEVOPHED GTT TO A MAP OF 65 DISCUSSED.
[2019-05-16] MEDS: ENOXAPARIN 30 MG/0.3 ML SQ SCH (15:22)
[2019-05-16 15:30] VITALS: BP 103/33
[2019-05-16] MEDS ORDERED: morphine SULFATE 10 MG/ML, 1ML IVPush PRN ×2 (16:00→16:16)
[2019-05-16] MEDS: OXYcodone IR 5MG TABLET PO PRN ×2 (16:28→17:10)
[2019-05-16] MEDS: IBUPROFEN 600 MG TABLET PO PRN (16:28)
[2019-05-16] MEDS ORDERED: VASOPRESSIN 100 UNIT in SODIUM CHLORIDE 0.9% 495 ML IV PRN (18:30)
[2019-05-16] MEDS ORDERED: NOREPINEPHRINE 16 MG in SODIUM CHLORIDE 0.9% 234 ML IV PRN ×3 (20:30→22:32)
[2019-05-17] MEDS ORDERED: SODIUM CHLORIDE 0.9%, 500ML IVBOLUS PRN (00:30)
[2019-05-17] MEDS: ENOXAPARIN 30 MG/0.3 ML SQ SCH ×2 (03:04→14:38)
[2019-05-17 03:28] LABS: MEAN CORPUSCULAR HEMOGLOBIN 34.2 pg (27.0-34.8); MEAN CORPUSCULAR HGB CONC 32.3 g/dL (32.4-35.8); MEAN CORPUSCULAR VOLUME 105.9 fL (80-100); MEAN PLATELET VOLUME 7.8 fL (7.4-10.4); PLATELET COUNT 135 x10^3/uL (130-400); RED BLOOD COUNT 2.88 x10^6/uL (3.82-5.3)
[2019-05-17 03:29] LABS: ANION GAP 5 mmol/L (5-15); CALCIUM 7.4 mg/dL (8.5-10.1); CHLORIDE 113 mmol/L (98-107)
[2019-05-17 04:01] VITALS: BP 134/51
[2019-05-17 04:17] LABS: MD YES
[2019-05-17 04:21] LABS: <PLATELET ESTIMATE> ADEQUATE; <PLT MORPHOLOGY> NORMAL PLT MORPH; BANDS%(MANUAL) 6 % (0-7); LYMPHS% (MANUAL) 5 % (22-44); METAMYELOCYTES% (MANUAL) 1 % (0-1); MONOS% (MANUAL) 5 % (2-9); REACTIVE LYMPHS % (MANUAL) 2 % (0-0); SEGS% (MANUAL) 81 % (42-75)
[2019-05-17] MEDS ORDERED: OXYcodone IR 5MG TABLET PO PRN (05:00)
[2019-05-17] MEDS ORDERED: morphine SULFATE 10 MG/ML, 1ML IVPush PRN (05:00)
[2019-05-17] MEDS: SODIUM CHLORIDE 0.9% 1,000 ML IV SCH ×2 (05:54→13:29)
[2019-05-17] MEDS: DOCUSATE 100 MG CAPSULE PO PRN ×2 (05:55→20:35)
[2019-05-17] MEDS: IBUPROFEN 600 MG TABLET PO PRN (13:32)
[2019-05-17] MEDS: CEFTRIAXONE PMX 1GM/50ML 50 ML IV SCH (14:38)
[2019-05-17] MEDS: AZITHROMYCIN 500 MG in SODIUM CHLORIDE 0.9% 250 ML IV SCH (14:38)
[2019-05-17] MEDS: OXYcodone IR 5MG TABLET PO PRN (16:56)
[2019-05-18] MEDS: morphine SULFATE 10 MG/ML, 1ML IVPush PRN ×2 (01:02→23:45)
[2019-05-18] MEDS: ENOXAPARIN 30 MG/0.3 ML SQ SCH ×2 (02:54→15:03)
[2019-05-18] MEDS: SODIUM CHLORIDE 0.9% 1,000 ML IV SCH ×2 (07:09→21:31)
[2019-05-18] MEDS ORDERED: ROPINIROLE 0.25MG TABLET PO SCH ×2 (09:30→21:00)
[2019-05-18 10:30] VITALS: BP 115/55
[2019-05-18] MEDS: CEFTRIAXONE PMX 1GM/50ML 50 ML IV SCH (14:12)
[2019-05-18 14:14] VITALS: BP 115/69
[2019-05-18] MEDS: AZITHROMYCIN 500 MG in SODIUM CHLORIDE 0.9% 250 ML IV SCH (15:03)
[2019-05-18] MEDS: OXYcodone IR 5MG TABLET PO PRN (18:04)
[2019-05-18 19:05] VITALS: BP 124/67
[2019-05-19 00:49] VITALS: BP 118/62
[2019-05-19 04:05] LABS: BASOPHILS # (AUTO) 0.03 x10^3/uL (0-0.1); BASOPHILS % (AUTO) 0 % (0-1); EOSINOPHILS # (AUTO) 0.13 x10^3/uL (0-0.4); EOSINOPHILS % (AUTO) 1 % (1-7); LYMPHOCYTES # (AUTO) 2.17 x10^3/uL (1-3.4); LYMPHOCYTES % (AUTO) 24 % (22-44); MD NO; MEAN CORPUSCULAR HEMOGLOBIN 33.8 pg (27.0-34.8); MEAN CORPUSCULAR HGB CONC 32.7 g/dL (32.4-35.8); MEAN CORPUSCULAR VOLUME 103.5 fL (80-100); MEAN PLATELET VOLUME 8.4 fL (7.4-10.4); MONOCYTES # (AUTO) 0.62 x10^3/uL (0.2-0.8); MONOCYTES % (AUTO) 7 % (2-9); NEUTROPHILS # (AUTO) 6.16 x10^3/uL (1.8-6.8); NEUTROPHILS % (AUTO) 68 % (42-75); PLATELET COUNT 124 x10^3/uL (130-400); RED BLOOD COUNT 2.88 x10^6/uL (3.82-5.3)
[2019-05-19 04:15] LABS: ANION GAP 5 mmol/L (5-15); CALCIUM 7.6 mg/dL (8.5-10.1); CHLORIDE 117 mmol/L (98-107); CREATININE 0.43 mg/dL (0.55-1.02)
[2019-05-19] MEDS ORDERED: POTASSIUM CHLORIDE 20 MEQ TAB.ER.PRT PO ONE (06:00)
[2019-05-19 06:46] VITALS: BP 153/68
[2019-05-19] MEDS: morphine SULFATE 10 MG/ML, 1ML IVPush PRN ×2 (07:51→17:46)
[2019-05-19] MEDS: SODIUM CHLORIDE 0.9% 1,000 ML IV SCH (11:37)
[2019-05-19] MEDS: ENOXAPARIN 30 MG/0.3 ML SQ SCH (11:37)
[2019-05-19 12:01] VITALS: BP 132/65
[2019-05-19] MEDS: AZITHROMYCIN 500 MG in SODIUM CHLORIDE 0.9% 250 ML IV SCH (15:15)
[2019-05-19] MEDS: CEFTRIAXONE PMX 1GM/50ML 50 ML IV SCH (15:15)
[2019-05-19] MEDS ORDERED: AZIT250T PO (15:35)
[2019-05-19] MEDS ORDERED: CEFD300C37 PO (15:35)
== END 2019-05-19 18:30 | disposition home health service (06) | DRG 871 ==
LOC: ED 10:57 → EDIP 12:13 → CCU 14:48 → 4NE 05-18 13:22 → 4NW 05-18 15:03
PROVIDERS: ADMIT Family Medicine; ATTEND Family Medicine
PROC: 0T9B70Z Drainage of Bladder with Drainage Device, Via Natural or Artificial Opening (ICD-10-PCS; principal; 2019-05-16)
DX: A41.9 Sepsis, unspecified organism (principal); J15.9 Unspecified bacterial pneumonia; J96.01 Acute respiratory failure with hypoxia; R65.21 Severe sepsis with septic shock; C22.1 Intrahepatic bile duct carcinoma; C78.80 Secondary malignant neoplasm of unspecified digestive organ; E46 Unspecified protein-calorie malnutrition; E87.2 Acidosis; M84.422A Pathological fracture, left humerus, initial encounter for fracture; G93.40 Encephalopathy, unspecified; F17.200 Nicotine dependence, unspecified, uncomplicated; Z68.20 Body mass index [BMI] 20.0-20.9, adult; Z85.09 Personal history of malignant neoplasm of other digestive organs; Z90.49 Acquired absence of other specified parts of digestive tract; Z92.21 Personal history of antineoplastic chemotherapy
CPT/HCPCS: 36415; 71045; 80048; 80053; 81003; 82533; 83605; 84145; 85025; 87040; 87081; 93005; 93306; 96361; 96374; 99291; G0378; J0456; J0696; J1650; Q0162; J2270; J7030; J7040; J7050

== ENCOUNTER 2019-06-04 12:25 | Outpatient (CLI) | payer MEDICARE ==
[~2019-06-04 12:25] MED LIST changes: +AZIT250T PO; +CEFD300C37 PO; +compazine; +cough suppressant; +marinol; +morphine er PEG; +zofran
[2019-06-04] MEDS ORDERED: OMNIPAQUE 350 MG/ML, 100ML BOTTLE ONE (15:03)
== END 2019-06-04 23:59 | disposition home or self-care (01) ==
LOC: RAD 12:25 → EDSTATUS 14:00 → RAD 23:59
PROVIDERS: ATTEND Specialist
DX: C23 Malignant neoplasm of gallbladder (principal); M51.37 Other intervertebral disc degeneration, lumbosacral region; M71.21 Synovial cyst of popliteal space [Baker], right knee; N28.1 Cyst of kidney, acquired; N81.12 Cystocele, lateral; J43.8 Other emphysema; J98.11 Atelectasis; E04.2 Nontoxic multinodular goiter; R91.1 Solitary pulmonary nodule; R19.09 Other intra-abdominal and pelvic swelling, mass and lump; Z90.49 Acquired absence of other specified parts of digestive tract
CPT/HCPCS: 71260; 74177; 93970; Q9967

== ENCOUNTER 2019-08-15 12:24 | Inpatient (IN) | payer MEDICARE ==
[~2019-08-15] VITALS: Ht 152.4 cm; Wt 54.7 kg
--- NOTE | 2019-08-15 12:53 | NUR ---
daughter waiting in vehicle in parking lot. Tiffanie [phone]
--- NOTE | 2019-08-15 12:54 | NUR ---
daughter states pt here for o/p chest xray and radiology has order.
--- NOTE | 2019-08-15 13:09 | NUR ---
PT STATES SHE IS HERE FOR OUTPATIENT XRAY BUT CHECKED IN TO ED. RADIOLOGY CALLED AND WILL STILL PROCEED W CXR
[2019-08-15] MEDS ORDERED: SODIUM CHLORIDE FLUSH 10ML SYR IVF ONE (14:30)
[2019-08-15] MEDS ORDERED: AZITHROMYCIN 500 MG in SODIUM CHLORIDE 0.9% 250 ML IVPB ONE (14:30)
[2019-08-15] MEDS ORDERED: CEFTRIAXONE PMX 1GM/50ML 50 ML IVPB ONE (14:30)
[2019-08-15] MEDS ORDERED: ONDANSETRON ODT 4 MG PO PRN ×2 (15:00→16:00)
[2019-08-15] MEDS ORDERED: IBUPROFEN 600 MG TABLET PO PRN (15:00)
[2019-08-15] MEDS ORDERED: ACETAMINOPHEN 500 MG TABLET PO PRN (15:00)
[2019-08-15 15:04] LABS: BASOPHILS # (AUTO) 0.01 x10^3/uL (0-0.1); BASOPHILS % (AUTO) 0 % (0-1); EOSINOPHILS % (AUTO) 0 % (1-7); LYMPHOCYTES # (AUTO) 1.94 x10^3/uL (1-3.4); LYMPHOCYTES % (AUTO) 18 % (22-44); MD NO; MEAN CORPUSCULAR HGB CONC 32.6 g/dL (32.4-35.8); MEAN PLATELET VOLUME 7.7 fL (7.4-10.4); MONOCYTES # (AUTO) 0.56 x10^3/uL (0.2-0.8); MONOCYTES % (AUTO) 5 % (2-9); NEUTROPHILS # (AUTO) 8.44 x10^3/uL (1.8-6.8); NEUTROPHILS % (AUTO) 77 % (42-75); PLATELET COUNT 103 x10^3/uL (130-400); RED BLOOD COUNT 3.36 x10^6/uL (3.82-5.3); RED CELL DISTRIBUTION WIDTH 20.6 % (9.6-15.2)
[2019-08-15 15:08] LABS: ALBUMIN 3.2 g/dL (3.4-5.0); ANION GAP 7 mmol/L (5-15); CALCIUM 8.5 mg/dL (8.5-10.1); CHLORIDE 106 mmol/L (98-107)
[2019-08-15 15:16] LABS: ALANINE AMINOTRANSFERASE 10 U/L (12-78); ALKALINE PHOSPHATASE 122 U/L (45-117); BILIRUBIN,TOTAL 1.3 mg/dL (0.2-1.0); CREATININE 0.87 mg/dL (0.55-1.02); TOTAL PROTEIN 7.6 g/dL (6.4-8.2)
[2019-08-15] MEDS ORDERED: SODIUM CHLORIDE FLUSH 10ML SYR IVF PRN (15:30)
[2019-08-15] MEDS: SODIUM CHLORIDE 0.9% 1,000 ML IV SCH (15:57)
[2019-08-15] MEDS ORDERED: ACETAMINOPHEN 325 MG TABLET PO PRN (16:00)
[2019-08-15] MEDS ORDERED: AZITHROMYCIN 500 MG TABLET PO ONE (16:00)
[2019-08-15] MEDS ORDERED: POLYETHYLENE GLYCOL 17 GM PACKET PO PRN (16:00)
[2019-08-15] MEDS ORDERED: OXYcodone/APAP 5/325MG TABLET PO PRN (16:00)
[2019-08-15] MEDS: CEFTRIAXONE PMX 1GM/50ML 50 ML IV SCH (16:00)
[2019-08-15] MEDS ORDERED: DOCUSATE 100 MG CAPSULE PO PRN (16:00)
--- NOTE | 2019-08-15 16:06 | NUR ---
PT INFORMED OF INTENT TO ADMIT. UNDRESSED AND PLACED IN GOWN. COVID SWAB COLLECTED AND WALKED TO LAB. PT DENIES ANY FURTHER NEEDS AT THIS TIME. CALL LIGHT IN REACH.
--- NOTE | 2019-08-15 17:55 | NUR ---
TASK RN: ORIN, PATIENT RESTING ON AYSE PELAYO AT THIS TIME. CALL LIGHT IN REACH
[2019-08-15] MEDS ORDERED: CEFTRIAXONE PMX 1GM/50ML 50 ML ONE (17:56)
--- NOTE | 2019-08-15 18:22 | NUR ---
PATIENT ABLE TO STAND AND PIVOT TO COMMODE TO URINATE. TOERLATED WELL. UNSUCCESSFUL IN STARTING PIV. TOO HIGH RISK OF INFECTION TO ACCESS PORT IN ED AT THIS TIME
--- NOTE | 2019-08-15 19:46 | NUR ---
PORT ACCESSED W STERILE TECHNIQUE. PT GIVEN SANDWHICH AND BEVERAGE. PT HAS NO OTHER NEEDS AT THIS TIME. VSS. WAITING FOR ADMIT BED TO BECOME AVAILABLE.
[2019-08-15] MEDS ORDERED: ENOXAPARIN 40 MG/0.4 ML ONE (19:53)
[2019-08-15] MEDS ORDERED: ROPI0.254 PO (20:07)
[2019-08-15] MEDS: ENOXAPARIN 40 MG/0.4 ML SQ SCH (20:10)
--- NOTE | 2019-08-15 21:04 | NUR ---
Assumed care of pt. Report given to HEATHER Munoz
--- NOTE | 2019-08-15 21:20 | NUR ---
Pt alert and resting on gureast islip. Pt transported to room.
[2019-08-16 00:01] VITALS: BP 111/45
[2019-08-16] MEDS: SODIUM CHLORIDE 0.9% 1,000 ML IV SCH ×2 (04:35→16:00)
[2019-08-16 06:40] LABS: MEAN CORPUSCULAR HEMOGLOBIN 31.3 pg (27.0-34.8); MEAN CORPUSCULAR HGB CONC 32.8 g/dL (32.4-35.8); MEAN CORPUSCULAR VOLUME 95.5 fL (80-100); MEAN PLATELET VOLUME 7.1 fL (7.4-10.4); PLATELET COUNT 86 x10^3/uL (130-400); RED BLOOD COUNT 2.83 x10^6/uL (3.82-5.3); RED CELL DISTRIBUTION WIDTH 21.3 % (9.6-15.2)
[2019-08-16 06:50] LABS: ALBUMIN 2.4 g/dL (3.4-5.0); ANION GAP 4 mmol/L (5-15); CALCIUM 7.8 mg/dL (8.5-10.1); CHLORIDE 109 mmol/L (98-107)
[2019-08-16 06:52] LABS: ALKALINE PHOSPHATASE 89 U/L (45-117); BILIRUBIN,TOTAL 1.3 mg/dL (0.2-1.0); CREATININE 0.73 mg/dL (0.55-1.02); TOTAL PROTEIN 6.1 g/dL (6.4-8.2)
[2019-08-16 06:53] LABS: ALANINE AMINOTRANSFERASE < 6 U/L (12-78)
[2019-08-16 07:29] LABS: BASOPHILS # (AUTO) 0.01 x10^3/uL (0-0.1); BASOPHILS % (AUTO) 0 % (0-1); EOSINOPHILS # (AUTO) 0.01 x10^3/uL (0-0.4); EOSINOPHILS % (AUTO) 0 % (1-7); LYMPHOCYTES # (AUTO) 1.56 x10^3/uL (1-3.4); LYMPHOCYTES % (AUTO) 20 % (22-44); MD SCAN; MONOCYTES # (AUTO) 0.57 x10^3/uL (0.2-0.8); MONOCYTES % (AUTO) 7 % (2-9); NEUTROPHILS # (AUTO) 5.84 x10^3/uL (1.8-6.8); NEUTROPHILS % (AUTO) 73 % (42-75)
[2019-08-16 08:00] VITALS: BP 100/70
[2019-08-16] MEDS ORDERED: AZITHROMYCIN 500 MG TABLET PO SCH (09:00)
[2019-08-16] MEDS ORDERED: AZIT500T10 PO (12:52)
[2019-08-16] MEDS ORDERED: CEFD300C37 PO (12:52)
[2019-08-16] MEDS: ENOXAPARIN 40 MG/0.4 ML SQ SCH (16:00)
[2019-08-16] MEDS: CEFTRIAXONE PMX 1GM/50ML 50 ML IV SCH (16:00)
== END 2019-08-16 16:44 | disposition home or self-care (01) | DRG 193 ==
LOC: ED 13:36 → EDIP 15:30 → 3WST 21:25
PROVIDERS: ADMIT Family Medicine; ATTEND Family Medicine
DX: J15.9 Unspecified bacterial pneumonia (principal); E43 Unspecified severe protein-calorie malnutrition; D63.8 Anemia in other chronic diseases classified elsewhere; D69.6 Thrombocytopenia, unspecified; Z85.09 Personal history of malignant neoplasm of other digestive organs; Z87.891 Personal history of nicotine dependence; Z90.49 Acquired absence of other specified parts of digestive tract; C67.9 Malignant neoplasm of bladder, unspecified; Z20.828 Contact with and (suspected) exposure to other viral communicable diseases; Z88.6 Allergy status to analgesic agent; Z88.8 Allergy status to other drugs, medicaments and biological substances; D64.81 Anemia due to antineoplastic chemotherapy; T45.1X5A Adverse effect of antineoplastic and immunosuppressive drugs, initial encounter
CPT/HCPCS: 36415; 71046; 80053; 83605; 83615; 83880; 84145; 85025; 87040; 93005; 96365; 96368; G0378; J0456; J0696; J1650; Q0162; J7030; J7050

== ENCOUNTER → 2019-08-26 | Outpatient (CLI) | payer MEDICARE ==
[~2019-08-26] MED LIST changes: +AZIT500T10 PO; +ROPI0.254 PO
== END | disposition home or self-care (01) ==
LOC: PETCFH 11:49
PROVIDERS: ATTEND Specialist
DX: C23 Malignant neoplasm of gallbladder (principal); R19.09 Other intra-abdominal and pelvic swelling, mass and lump
CPT/HCPCS: 78815; A9552

== ENCOUNTER → 2019-09-01 | Outpatient (CLI) | payer MEDICARE ==
[~2019-09-01] MED LIST changes: +OMNIPAQUE 350 MG/ML, 100ML BOTTLE ONE
== END | disposition home or self-care (01) ==
LOC: RAD 15:57
PROVIDERS: ATTEND Surgery
DX: C23 Malignant neoplasm of gallbladder (principal); R19.01 Right upper quadrant abdominal swelling, mass and lump; J98.4 Other disorders of lung; Z90.49 Acquired absence of other specified parts of digestive tract
CPT/HCPCS: 74170; Q9967

== ENCOUNTER 2019-09-03 10:53 | Outpatient (CLI) | payer MEDICARE ==
[~2019-09-03 10:53] MED LIST changes: -OMNIPAQUE 350 MG/ML, 100ML BOTTLE ONE
== END 2019-09-03 23:59 | disposition home or self-care (01) ==
LOC: RAD 10:53
PROVIDERS: ATTEND Specialist
DX: Z01.812 Encounter for preprocedural laboratory examination (principal); C23 Malignant neoplasm of gallbladder; R60.9 Edema, unspecified; I82.413 Acute embolism and thrombosis of femoral vein, bilateral
CPT/HCPCS: 71046; 93970

== ENCOUNTER → 2019-10-21 | Outpatient (CLI) | payer MEDICARE | END | disposition home or self-care (01) | LOC: CFH 13:55 | PROVIDERS: ATTEND Specialist | DX: C23 Malignant neoplasm of gallbladder (principal) | CPT/HCPCS: 93970 ==

== ENCOUNTER 2019-10-28 11:50 | Outpatient (CLI) | payer MEDICARE ==
[2019-10-28] MEDS ORDERED: OMNIPAQUE 350 MG/ML, 100ML BOTTLE ONE (16:29)
== END 2019-10-28 23:59 | disposition home or self-care (01) ==
LOC: CFH 11:50
PROVIDERS: ATTEND Surgery
DX: C23 Malignant neoplasm of gallbladder (principal); C78.6 Secondary malignant neoplasm of retroperitoneum and peritoneum; J84.10 Pulmonary fibrosis, unspecified; K57.30 Diverticulosis of large intestine without perforation or abscess without bleeding; M51.37 Other intervertebral disc degeneration, lumbosacral region; R19.09 Other intra-abdominal and pelvic swelling, mass and lump
CPT/HCPCS: 74177; Q9967

== ENCOUNTER → 2020-01-01 | Outpatient (CLI) | payer MEDICARE ==
[~2020-01-01] MED LIST changes: +OMNIPAQUE 350 MG/ML, 100ML BOTTLE ONE
== END | disposition home or self-care (01) ==
LOC: CFH 12:46
PROVIDERS: ATTEND Specialist
DX: C23 Malignant neoplasm of gallbladder (principal); R91.8 Other nonspecific abnormal finding of lung field; J84.10 Pulmonary fibrosis, unspecified; M51.37 Other intervertebral disc degeneration, lumbosacral region; N28.1 Cyst of kidney, acquired
CPT/HCPCS: 71260; 74160; 82565; Q9967

== ENCOUNTER 2020-02-27 11:45 | Emergency (ER) | payer MEDICARE ==
[~2020-02-27] VITALS: Ht 152.4 cm; Wt 51.8 kg
[~2020-02-27 11:45] MED LIST changes: -OMNIPAQUE 350 MG/ML, 100ML BOTTLE ONE
[2020-02-27] MEDS ORDERED: MORPHINE SULFATE 4 MG/ML, 1ML IVPush PRN (12:30)
[2020-02-27] MEDS ORDERED: SODIUM CHLORIDE FLUSH 10ML SYR IVF ONE (12:30)
[2020-02-27] MEDS ORDERED: ONDANSETRON 2MG/ML, 2ML IVPush ONE (12:30)
[2020-02-27 12:45] LABS: ALANINE AMINOTRANSFERASE 14 U/L (12-78); ALBUMIN 3.5 g/dL (3.4-5.0); ANION GAP 5 mmol/L (5-15); BASOPHILS # (AUTO) 0.04 x10^3/uL (0-0.1); BASOPHILS % (AUTO) 1 % (0-1); CALCIUM 9.2 mg/dL (8.5-10.1); CHLORIDE 105 mmol/L (98-107); CREATININE 0.98 mg/dL (0.55-1.02); EOSINOPHILS # (AUTO) 0.04 x10^3/uL (0-0.4); EOSINOPHILS % (AUTO) 1 % (1-7); LYMPHOCYTES # (AUTO) 2.19 x10^3/uL (1-3.4); LYMPHOCYTES % (AUTO) 34 % (22-44); MD NO; MEAN CORPUSCULAR HEMOGLOBIN 23.1 pg (27.0-34.8); MEAN CORPUSCULAR HGB CONC 30.4 g/dL (32.4-35.8); MEAN PLATELET VOLUME 6.9 fL (7.4-10.4); MONOCYTES # (AUTO) 0.53 x10^3/uL (0.2-0.8); MONOCYTES % (AUTO) 8 % (2-9); NEUTROPHILS % (AUTO) 56 % (42-75); PLATELET COUNT 319 x10^3/uL (130-400); RED CELL DISTRIBUTION WIDTH 17.7 % (9.6-15.2)
[2020-02-27 12:47] LABS: ALKALINE PHOSPHATASE 90 U/L (45-117); BILIRUBIN,TOTAL 0.5 mg/dL (0.2-1.0); TOTAL PROTEIN 8.5 g/dL (6.4-8.2)
[2020-02-27] MEDS ORDERED: MORPHINE SULFATE 4 MG/ML, 1ML ONE (12:52)
[2020-02-27] MEDS ORDERED: ONDANSETRON 2MG/ML, 2ML ONE (12:52)
--- NOTE | 2020-02-27 13:01 | NUR ---
PT MEDICATED PER EMAR, PLACED ON 22L NC FOR SAFETY. PT RESTING ON GURNEY W/ CALL LIGHT IN REACH, SIDE RAILS UPX2 AND FAMILY AT BEDSIDE. RESP EVEN AND UNLABORED, SONIYA.
--- NOTE | 2020-02-27 13:08 | NUR ---
PT HYPOTENSIVE. ED PROVIDER UPDATED. VERBAL ORDER FOR 1L NS BOLUS RECEIVED. IVF STARTED, PT TAKEN TO CT.
--- NOTE | 2020-02-27 13:11 | NUR ---
PTS DAUGHTER REPORTS HX OF BEING ON PRESSORS DURING ADMISSION.
[2020-02-27] MEDS ORDERED: OMNIPAQUE 350 MG/ML, 100ML BOTTLE ONE (13:22)
--- NOTE | 2020-02-27 13:40 | NUR ---
PT BACK FROM CT, BP RECHECKED NOW 111/53. BOLUS INFUSING
--- NOTE | 2020-02-27 14:40 | NUR ---
PT AMBULATED TO BR WITH STEADY GAIT, UA SAMPLE OBTAINED AND SENT TO LAB. PT BACK TO ORIN PELAYO, AYSE NOTED
[2020-02-27 14:46] VITALS: BP 133/72
[2020-02-27] MEDS ORDERED: SODIUM CHLORIDE FLUSH 10ML SYR IVF PRN (15:00)
[2020-02-27 15:11] LABS: MICROSCOPIC AUTO
--- NOTE | 2020-02-27 15:37 | NUR ---
PT NOW WANTING TO DC, ADMITTING MD TO DISCUSS POC WITH DR RACHEL
== END 2020-02-27 16:32 | disposition home or self-care (01) ==
LOC: ED 12:32
DX: C80.1 Malignant (primary) neoplasm, unspecified (principal); R10.31 Right lower quadrant pain; Z79.899 Other long term (current) drug therapy; Z90.49 Acquired absence of other specified parts of digestive tract; Z85.09 Personal history of malignant neoplasm of other digestive organs
CPT/HCPCS: 36415; 74177; 80053; 81001; 83690; 85025; 87086; 96374; 96375; 99285; J2270; J2405; Q9967

== ENCOUNTER 2020-03-01 11:41 | Day surgery (SDC) | payer MEDICARE ==
[~2020-03-01] VITALS: Ht 152.4 cm; Wt 52.6 kg
[2020-03-01] MEDS ORDERED: SODIUM CHLORIDE 0.9% 1,000 ML IV SCH (12:20)
[2020-03-01] MEDS ORDERED: TAGAMENT PO (12:27)
[2020-03-01] MEDS ORDERED: APIX5TAB PO (12:27)
[2020-03-01] MEDS ORDERED: gabapentin PO (12:27)
[2020-03-01 12:28] VITALS: BP 145/75
[2020-03-01] MEDS ORDERED: MIDAZOLAM 1 MG/ML, 5ML ONE (14:02)
[2020-03-01] MEDS ORDERED: NALOXONE 1 MG/ML, 2ML ONE (14:02)
[2020-03-01] MEDS ORDERED: FLUMAZENIL 0.1 MG/1 ML, 5ML ONE (14:02)
[2020-03-01] MEDS ORDERED: FENTANYL PF 100 MCG/2ML ONE (14:02)
== END 2020-03-01 16:35 | disposition home or self-care (01) ==
LOC: OUT 11:41
PROVIDERS: ATTEND Specialist
DX: R19.09 Other intra-abdominal and pelvic swelling, mass and lump (principal); C44.599 Other specified malignant neoplasm of skin of other part of trunk; C23 Malignant neoplasm of gallbladder; D64.81 Anemia due to antineoplastic chemotherapy; G89.3 Neoplasm related pain (acute) (chronic); G25.81 Restless legs syndrome; Z79.01 Long term (current) use of anticoagulants; Z79.891 Long term (current) use of opiate analgesic; Z79.899 Other long term (current) drug therapy; Z87.891 Personal history of nicotine dependence; Z88.5 Allergy status to narcotic agent; Z88.8 Allergy status to other drugs, medicaments and biological substances; Z90.49 Acquired absence of other specified parts of digestive tract; Z98.890 Other specified postprocedural states
CPT/HCPCS: 49180; 77012; 88305; 88341; 88342; 99156; 99157; J2250; J3010; J7030; 20206; J2310

== ENCOUNTER 2020-05-24 15:06 | Emergency (ER) | payer MEDICARE ==
[~2020-05-24] VITALS: Ht 152.4 cm; Wt 54.0 kg
[~2020-05-24 15:06] MED LIST changes: +APIX5TAB PO; +TAGAMENT PO; +gabapentin PO
[2020-05-24 15:14] VITALS: BP 152/69
[2020-05-24] MEDS ORDERED: ASPIRIN 81 MG TABLET CHEW PO ONE (15:30)
[2020-05-24] MEDS ORDERED: ASPIRIN 81 MG TABLET CHEW ONE (15:44)
[2020-05-24 15:54] LABS: BASOPHILS % (AUTO) 0 % (0-1); EOSINOPHILS % (AUTO) 0 % (1-7); LYMPHOCYTES % (AUTO) 15 % (22-44); MEAN CORPUSCULAR HEMOGLOBIN 30.1 pg (27.0-34.8); MEAN PLATELET VOLUME 6.7 fL (7.4-10.4); MONOCYTES % (AUTO) 12 % (2-9); NEUTROPHILS % (AUTO) 73 % (42-75); PLATELET COUNT 209 x10^3/uL (130-400); RED CELL DISTRIBUTION WIDTH 33.5 % (9.6-15.2)
--- NOTE | 2020-05-24 15:55 | NUR ---
SENT FROM [facility] FOR SOB X1 WEEK AND ELEVATED WBC.DENIES CP.HX: GALBLADDER CANC, METASTASIS TO ABD WALL. CHEMO X2.5 YEARS, CHEMO HELD TODAY. PT IN BED WITH CONT SPO2, BP Q 30 MIN, SIDE RAILS UP X2, CALL LIGHT IN REACH.
[2020-05-24 16:08] LABS: ANION GAP 4 mmol/L (5-15); CALCIUM 8.5 mg/dL (8.5-10.1); CHLORIDE 107 mmol/L (98-107); CREATININE 0.98 mg/dL (0.55-1.02)
[2020-05-24 16:11] LABS: TROPONIN I < 0.015 ng/mL (0.000-0.045)
--- NOTE | 2020-05-24 17:07 | NUR ---
PT AMBULATED TO THE RESTROOM WITH STEADY GAIT. CALLED LAB FOR RESULTS
[2020-05-24 17:12] LABS: MD SCAN
--- NOTE | 2020-05-24 17:35 | NUR ---
Patient given discharge instructions and they have confirmed that they understand the instructions. Patient ambulatory with steady gait.
== END 2020-05-24 17:38 | disposition home or self-care (01) ==
LOC: ED 17:30
DX: R06.00 Dyspnea, unspecified (principal); C23 Malignant neoplasm of gallbladder; Z51.11 Encounter for antineoplastic chemotherapy; Z90.49 Acquired absence of other specified parts of digestive tract
CPT/HCPCS: 36415; 71045; 80048; 82040; 83605; 83880; 84484; 85025; 93005; 99285

== ENCOUNTER → 2020-06-16 | Outpatient (CLI) | payer MEDICARE ==
[~2020-06-16] MED LIST changes: +OMNIPAQUE 350 MG/ML, 100ML BOTTLE ONE
== END | disposition home or self-care (01) ==
LOC: CFH 13:16
PROVIDERS: ATTEND Specialist
DX: C23 Malignant neoplasm of gallbladder (principal); D50.9 Iron deficiency anemia, unspecified; R16.0 Hepatomegaly, not elsewhere classified; R19.09 Other intra-abdominal and pelvic swelling, mass and lump; R91.8 Other nonspecific abnormal finding of lung field; J98.11 Atelectasis
CPT/HCPCS: 71260; 74177; Q9967

== ENCOUNTER 2020-06-27 12:16 | Emergency (ER) | payer MEDICARE ==
[~2020-06-27] VITALS: Ht 152.4 cm; Wt 54.3 kg
[~2020-06-27 12:16] MED LIST changes: +HYDR-1067 PO; -HYDR-3240 PO; -OMNIPAQUE 350 MG/ML, 100ML BOTTLE ONE
--- NOTE | 2020-06-27 12:45 | NUR ---
PROVIDER AT BEDSIDE FOR ASSESSMENT. DISCUSSED PLAN OF CARE. QUESTIONS ANSWERED
--- NOTE | 2020-06-27 12:45 | NUR ---
PT COMES IN C/O LOW BACK PAIN WITH WALKING, MOVEMENT, BENDING. PT STATES 8/10 LOW BACK PAIN WITH MOVEMENT. PT DENIES ANY RECENT INJURIES OR FALLS. MONITORS CONNECTED. WARM BLANKETS PROVIDED. CALL LIGHT W/IN REACH
[2020-06-27] MEDS ORDERED: FENTANYL PF 100 MCG/2ML IV ONE ×2 (13:00→15:30)
[2020-06-27] MEDS ORDERED: SODIUM CHLORIDE FLUSH 10ML SYR IVF ONE (13:00)
[2020-06-27] MEDS ORDERED: FENTANYL PF 100 MCG/2ML ONE ×2 (13:05→15:13)
[2020-06-27 13:07] LABS: BASOPHILS % (AUTO) 1 % (0-1); EOSINOPHILS % (AUTO) 1 % (1-7); LYMPHOCYTES % (AUTO) 32 % (22-44); MEAN CORPUSCULAR HEMOGLOBIN 31.4 pg (27.0-34.8); MEAN CORPUSCULAR HGB CONC 33.4 g/dL (32.4-35.8); MEAN PLATELET VOLUME 7.1 fL (7.4-10.4); MONOCYTES % (AUTO) 13 % (2-9); NEUTROPHILS % (AUTO) 54 % (42-75); PLATELET COUNT 249 x10^3/uL (130-400); RED BLOOD COUNT 3.71 x10^6/uL (3.82-5.3)
[2020-06-27 13:16] LABS: ALANINE AMINOTRANSFERASE 12 U/L (12-78); ALBUMIN 2.9 g/dL (3.4-5.0); ANION GAP 6 mmol/L (5-15); CALCIUM 8.8 mg/dL (8.5-10.1); CHLORIDE 105 mmol/L (98-107); CREATININE 1.02 mg/dL (0.55-1.02)
[2020-06-27 13:18] LABS: ALKALINE PHOSPHATASE 94 U/L (45-117); BILIRUBIN,TOTAL 0.3 mg/dL (0.2-1.0); TOTAL PROTEIN 7.7 g/dL (6.4-8.2)
[2020-06-27 13:38] LABS: MICROSCOPIC AUTO
--- NOTE | 2020-06-27 13:42 | NUR ---
PT RESTING ON GURJASPER. IV PLACED. ORDERED MEDICATIONS ADMINISTERED. VSS. NAD. [facility]
[2020-06-27 13:46] LABS: MD SCAN
--- NOTE | 2020-06-27 14:03 | NUR ---
PT RESTING ON GURNEY. DENIES PAIN AT THIS TIME. VSS. NAD. CALL LIGHT W/IN REACH
--- NOTE | 2020-06-27 14:48 | NUR ---
PT AMBULATED TO BATHROOM W/STEADY GAIT
[2020-06-27 15:16] VITALS: BP 118/40
--- NOTE | 2020-06-27 15:31 | NUR ---
PT TO DISICHARGE VIA WHEELCHAIR. PT AND DAUGHTER ENCOURAGED TO FOLLOWUP DISCUSSED. PT AND DAUGHTER EDUCATED TO RETURN TO THE ED WITH WORSENING SYMPTOMS .
== END 2020-06-27 15:33 | disposition home or self-care (01) ==
LOC: ED 12:42
DX: N30.00 Acute cystitis without hematuria (principal); M54.6 Pain in thoracic spine; M54.5 Low back pain; Z90.49 Acquired absence of other specified parts of digestive tract; Z85.09 Personal history of malignant neoplasm of other digestive organs
CPT/HCPCS: 36415; 80053; 81001; 83690; 85025; 87086; 96374; 96376; 99284; J3010